=== PATIENT | female | born 1940 | race Caucasian/White ===

== ENCOUNTER 2022-07-14 10:32 | Inpatient (IN) | payer MEDICARE ==
[~2022-07-14] VITALS: Ht 160 cm; Wt 114.3 kg
[2022-07-14] MEDS ORDERED: ONDANSETRON HCL INJ 2MG/ML 2ML 2 MG/ML VIAL IV STA (10:49)
[2022-07-14 11:04] LABS: BASOPHILS # (AUTO) 0.1 (0.0-0.1); BASOPHILS % 0.7 % (0.0-1.0); EOSINOPHILS # (AUTO) 0.2 (0.0-0.4); EOSINOPHILS % 1.5 % (0.0-6.0); HEMATOCRIT 38.3 % (34.2-44.1); HEMOGLOBIN 12.6 g/dL (12.0-16.0); LYMPHOCYTES % 20.5 % (18.0-39.1); MEAN CORPUSCULAR HEMOGLOBIN 31.3 pg (28-32); MEAN CORPUSCULAR HGB CONC 32.9 g/dL (31-35); MONOCYTES # (AUTO) 0.5 (0.2-0.8); MONOCYTES % 5.1 % (4.4-11.3); NEUTROPHILS # (AUTO) 6.9 (2.1-6.9); NEUTROPHILS % 71.7 % (38.7-80.0); PLATELET COUNT 287 x10e3/uL (140-360); RED BLOOD COUNT 4.03 x10e6/uL (3.6-5.1); RED CELL DISTRIBUTION WIDTH 13.9 % (11.7-14.4)
[2022-07-14 11:07] LABS: INR 1.42; PROTHROMBIN TIME 18.5 seconds (11.9-14.5)
[2022-07-14 11:08] LABS: PARTIAL THROMBOPLASTIN TIME 35.9 seconds (23.8-35.5)
[2022-07-14 11:17] LABS: ALBUMIN 3.5 g/dL (3.5-5.0); ALBUMIN/GLOBULIN RATIO 0.8 (0.8-2.0); ANION GAP 20.7 mmol/L (8-16); CALCIUM 9.6 mg/dL (8.4-10.2); CREATININE, SERUM 0.85 mg/dL (0.57-1.11); MAGNESIUM 1.6 MG/DL (1.3-2.1); POTASSIUM 4.7 mmol/L (3.5-5.1)
[2022-07-14 11:19] LABS: CLARITY,URINE CLEAR (CLEAR); COLOR,URINE YELLOW (YELLOW); LEUKOCYTE ESTERASE ,URINE NEGATIVE (NEGATIVE)
[2022-07-14 11:20] LABS: KETONES,URINE NEGATIVE (NEGATIVE); NITRITE,URINE NEGATIVE (NEGATIVE); PROTEIN,URINE DIPSTICK >=300 (NEGATIVE); URINE UROBILINOGEN 0.2 mg/dL (0.2 - 1)
[2022-07-14 11:23] LABS: CREATINE KINASE MB 1.1 ng/mL (0-5.0)
[2022-07-14 11:30] LABS: BACTERIA,URINE FEW /HPF; EPITHELIAL CELLS,URINE FEW /LPF; RBC,URINE 0-5 /HPF (0-5); YEAST,URINE FEW
[2022-07-14] MEDS ORDERED: FUROSEMIDE INJ 10 MG/ML 4 ML VIAL IV ONE ×2 (12:30→13:45)
[2022-07-14] MEDS ORDERED: MEROPENEM 1 GM in SODIUM CHLORIDE 0.9% 100 ML IV SCH (12:30)
[2022-07-14] MEDS ORDERED: ONDANSETRON HCL INJ 2MG/ML 2ML 2 MG/ML VIAL IV PRN ×2 (12:30→13:00)
[2022-07-14] MEDS ORDERED: HYDRALAZINE HCL 20 MG/ML VIAL IV PRN (12:30)
[2022-07-14 15:21] VITALS: BP 161/93
[2022-07-14] MEDS: FUROSEMIDE INJ 10 MG/ML 4 ML VIAL IV SCH ×2 (15:36→21:44)
[2022-07-14] MEDS: FAMOTIDINE 20 MG/2 ML VIAL IV SCH (15:37)
[2022-07-14] MEDS: MEROPENEM 1 GM in SODIUM CHLORIDE 0.9% 100 ML IV SCH ×2 (15:37→23:34)
[2022-07-14] MEDS ORDERED: SODIUM CHLORIDE 0.9% 250ML 250 ML ONE (15:42)
[2022-07-14 15:49] VITALS: BP 146/80
[2022-07-14 17:06] VITALS: BP 146/80
[2022-07-14] MEDS ORDERED: DEXTROSE 50% SYRINGE 50 ML IV PRN (17:15)
[2022-07-14 18:03] LABS: CREATINE KINASE MB 0.9 ng/mL (0-5.0)
[2022-07-14] MEDS: APIXABAN 5 MG TABLET PO SCH (18:07)
[2022-07-14 20:00] VITALS: BP 113/79
[2022-07-14] MEDS: ATORVASTATIN 20 MG TAB PO SCH (21:44)
[2022-07-14] MEDS: INSULIN REGULAR, HUMAN 100 UNIT/1 ML SQ SCH (21:53)
[2022-07-14 22:59] VITALS: BP 113/79
[2022-07-15] VITALS (7 sets, daily range): BP systolic 111–150; BP diastolic 60–75
[2022-07-15] MEDS: FAMOTIDINE 20 MG/2 ML VIAL IV SCH ×2 (01:55→14:08)
[2022-07-15] MEDS: METOPROLOL TARTRATE 25 MG TAB PO SCH ×3 (05:19→08:58)
[2022-07-15] MEDS ORDERED: FUROSEMIDE20 MG PO (05:30)
[2022-07-15] MEDS ORDERED: CLONIDINE HCL0.2 MG PO (05:30)
[2022-07-15] MEDS ORDERED: ATORVASTATIN CA40 MG PO (05:30)
[2022-07-15] MEDS ORDERED: METFORMIN HCL500 M1 PO (05:30)
[2022-07-15] MEDS ORDERED: CARVEDILOL25 MG PO (05:30)
[2022-07-15 06:04] LABS: BASOPHILS # (AUTO) 0.1 (0.0-0.1); BASOPHILS % 0.8 % (0.0-1.0); EOSINOPHILS # (AUTO) 0.2 (0.0-0.4); EOSINOPHILS % 1.4 % (0.0-6.0); HEMATOCRIT 41.3 % (34.2-44.1); HEMOGLOBIN 13.1 g/dL (12.0-16.0); LYMPHOCYTES # (AUTO) 1.7 (1.0-3.2); LYMPHOCYTES % 16.2 % (18.0-39.1); MEAN CORPUSCULAR HEMOGLOBIN 31.7 pg (28-32); MEAN CORPUSCULAR HGB CONC 31.7 g/dL (31-35); MONOCYTES # (AUTO) 0.5 (0.2-0.8); NEUTROPHILS # (AUTO) 8.1 (2.1-6.9); NEUTROPHILS % 75.8 % (38.7-80.0); PLATELET COUNT 288 x10e3/uL (140-360); RED BLOOD COUNT 4.13 x10e6/uL (3.6-5.1); RED CELL DISTRIBUTION WIDTH 14.1 % (11.7-14.4)
[2022-07-15 06:28] LABS: ALBUMIN 3.4 g/dL (3.5-5.0); ALBUMIN/GLOBULIN RATIO 0.9 (0.8-2.0); ANION GAP 20.9 mmol/L (8-16); CALCIUM 9.2 mg/dL (8.4-10.2); CREATININE, SERUM 0.88 mg/dL (0.57-1.11); POTASSIUM 4.9 mmol/L (3.5-5.1)
[2022-07-15 07:08] LABS: CREATINE KINASE MB 1.1 ng/mL (0-5.0)
[2022-07-15] MEDS: INSULIN REGULAR, HUMAN 100 UNIT/1 ML SQ SCH ×4 (07:30→21:06)
[2022-07-15] MEDS: MEROPENEM 1 GM in SODIUM CHLORIDE 0.9% 100 ML IV SCH ×2 (08:57→16:00)
[2022-07-15] MEDS: APIXABAN 5 MG TABLET PO SCH ×2 (08:58→17:15)
[2022-07-15] MEDS: FUROSEMIDE INJ 10 MG/ML 4 ML VIAL IV SCH (08:58)
[2022-07-15] MEDS ORDERED: METOPROLOL TARTRATE 25 MG TAB PO SCH (09:00)
[2022-07-15] MEDS: FLUCONAZOLE 100 MG TAB PO SCH (11:18)
[2022-07-15] MEDS: METOPROLOL TARTRATE 50 MG TAB PO SCH ×2 (11:19→21:02)
[2022-07-15 11:57] LABS: ABG PH 7.26 (7.35-7.45)
[2022-07-15 11:58] LABS: ABG HCO3 36 mmol/L (22-26); ABG PCO2 81 mmHg (35-45); ABG PO2 83 mmHg (80-105); ABG TCO2 39
[2022-07-15] MEDS ORDERED: IOPAMIDOL 370 MG/ML 100 ML INFUS..BTL INJ ONE (13:42)
[2022-07-15] MEDS: ALBUTEROL/IPRATROPIUM 3 ML NEB NEB SCH ×3 (15:19→23:05)
[2022-07-15] MEDS ORDERED: LOSARTAN POTASSIUM 100 MG TAB PO SCH (17:00)
[2022-07-15] MEDS: FUROSEMIDE INJ 10 MG/ML 2 ML VIAL IV SCH (17:14)
[2022-07-15] MEDS ORDERED: LEVALBUTEROL HCL SOLN NEBU 0.63 MG/3 ML NEB INH PRN (18:15)
[2022-07-15 18:48] LABS: FREE THYROXINE INDEX 2.2205 (1.4-3.8); THYROID STIMULATING HORMONE 1.808 uIU/mL (0.350-4.940)
[2022-07-15] MEDS: ATORVASTATIN 20 MG TAB PO SCH (21:01)
[2022-07-16] VITALS (8 sets, daily range): BP systolic 120–143; BP diastolic 68–99
[2022-07-16] MEDS: MEROPENEM 1 GM in SODIUM CHLORIDE 0.9% 100 ML IV SCH ×2 (00:11→10:09)
[2022-07-16] MEDS: FAMOTIDINE 20 MG/2 ML VIAL IV SCH ×2 (00:11→13:00)
[2022-07-16] MEDS: ALBUTEROL/IPRATROPIUM 3 ML NEB NEB SCH ×6 (06:00→23:08)
[2022-07-16 06:44] LABS: BASOPHILS # (AUTO) 0.1 (0.0-0.1); BASOPHILS % 0.5 % (0.0-1.0); EOSINOPHILS # (AUTO) 0.3 (0.0-0.4); EOSINOPHILS % 2.7 % (0.0-6.0); HEMATOCRIT 35.6 % (34.2-44.1); HEMOGLOBIN 11.4 g/dL (12.0-16.0); LYMPHOCYTES # (AUTO) 2.1 (1.0-3.2); LYMPHOCYTES % 20.5 % (18.0-39.1); MEAN CORPUSCULAR HEMOGLOBIN 31.7 pg (28-32); MEAN CORPUSCULAR VOLUME 98.9 fL (81-99); MONOCYTES # (AUTO) 0.8 (0.2-0.8); MONOCYTES % 7.3 % (4.4-11.3); NEUTROPHILS # (AUTO) 7.1 (2.1-6.9); NEUTROPHILS % 68.5 % (38.7-80.0); PLATELET COUNT 290 x10e3/uL (140-360); RED CELL DISTRIBUTION WIDTH 13.9 % (11.7-14.4)
[2022-07-16 07:09] LABS: ALBUMIN 3.1 g/dL (3.5-5.0); ALBUMIN/GLOBULIN RATIO 0.9 (0.8-2.0); ANION GAP 13.1 mmol/L (8-16); CREATININE, SERUM 0.91 mg/dL (0.57-1.11); POTASSIUM 4.1 mmol/L (3.5-5.1)
[2022-07-16 07:14] LABS: THYROID STIMULATING HORMONE 0.718 uIU/mL (0.350-4.940)
[2022-07-16] MEDS: INSULIN REGULAR, HUMAN 100 UNIT/1 ML SQ SCH ×4 (07:30→20:14)
[2022-07-16] MEDS: FLUCONAZOLE 100 MG TAB PO SCH (10:07)
[2022-07-16] MEDS: APIXABAN 5 MG TABLET PO SCH ×2 (10:08→17:56)
[2022-07-16] MEDS: METOPROLOL TARTRATE 50 MG TAB PO SCH ×2 (10:08→20:04)
[2022-07-16] MEDS: FUROSEMIDE INJ 10 MG/ML 2 ML VIAL IV SCH ×2 (10:09→17:56)
[2022-07-16 12:24] LABS: ABG HCO3 38 mmol/L (22-26); ABG PCO2 57 mmHg (35-45); ABG PH 7.43 (7.35-7.45); ABG PO2 74 mmHg (80-105); ABG TCO2 40
[2022-07-16] MEDS: CIPROFLOXACIN 500 MG TAB PO SCH (17:56)
[2022-07-16] MEDS: ATORVASTATIN 20 MG TAB PO SCH (20:03)
[2022-07-16] MEDS: ACETAMINOPHEN 325 MG TAB PO PRN (22:22)
[2022-07-17] VITALS (7 sets, daily range): BP systolic 115–138; BP diastolic 71–88
[2022-07-17] MEDS: FAMOTIDINE 20 MG/2 ML VIAL IV SCH ×2 (01:28→12:03)
[2022-07-17 05:47] LABS: BASOPHILS % 0.3 % (0.0-1.0); EOSINOPHILS # (AUTO) 0.4 (0.0-0.4); EOSINOPHILS % 3.4 % (0.0-6.0); HEMATOCRIT 35.6 % (34.2-44.1); HEMOGLOBIN 11.7 g/dL (12.0-16.0); LYMPHOCYTES # (AUTO) 2.5 (1.0-3.2); LYMPHOCYTES % 20.8 % (18.0-39.1); MEAN CORPUSCULAR HEMOGLOBIN 31.5 pg (28-32); MEAN CORPUSCULAR HGB CONC 32.9 g/dL (31-35); MONOCYTES % 8.1 % (4.4-11.3); NEUTROPHILS # (AUTO) 8.1 (2.1-6.9); NEUTROPHILS % 67.1 % (38.7-80.0); PLATELET COUNT 310 x10e3/uL (140-360); RED BLOOD COUNT 3.71 x10e6/uL (3.6-5.1); RED CELL DISTRIBUTION WIDTH 13.8 % (11.7-14.4)
[2022-07-17 06:18] LABS: ALBUMIN 3.1 g/dL (3.5-5.0); ALBUMIN/GLOBULIN RATIO 0.9 (0.8-2.0); ANION GAP 14.7 mmol/L (8-16); CALCIUM 9.1 mg/dL (8.4-10.2); CREATININE, SERUM 0.8 mg/dL (0.57-1.11); POTASSIUM 3.7 mmol/L (3.5-5.1)
[2022-07-17] MEDS: ALBUTEROL/IPRATROPIUM 3 ML NEB NEB SCH ×4 (06:20→19:35)
[2022-07-17] MEDS: INSULIN REGULAR, HUMAN 100 UNIT/1 ML SQ SCH ×4 (07:30→20:21)
[2022-07-17] MEDS ORDERED: LOSARTAN POTASSIUM 100 MG TAB PO SCH (09:00)
[2022-07-17] MEDS: FLUCONAZOLE 100 MG TAB PO SCH (09:12)
[2022-07-17] MEDS: FUROSEMIDE INJ 10 MG/ML 2 ML VIAL IV SCH ×2 (09:12→17:00)
[2022-07-17] MEDS: CIPROFLOXACIN 500 MG TAB PO SCH ×2 (09:14→20:21)
[2022-07-17] MEDS: APIXABAN 5 MG TABLET PO SCH ×2 (09:15→20:21)
[2022-07-17] MEDS: METOPROLOL TARTRATE 50 MG TAB PO SCH ×2 (09:16→20:24)
[2022-07-17] MEDS: LOSARTAN POTASSIUM 100 MG TAB PO SCH (09:30)
[2022-07-17] MEDS: ACETAMINOPHEN 325 MG TAB PO PRN ×2 (10:48→20:22)
[2022-07-17] MEDS: ATORVASTATIN 20 MG TAB PO SCH (20:21)
[2022-07-17] MEDS ORDERED: FUROSEMIDE INJ 10 MG/ML 4 ML VIAL ONE (21:09)
[2022-07-17] MEDS ORDERED: FUROSEMIDE INJ 10 MG/ML 2 ML VIAL IV ONE (21:30)
[2022-07-18] VITALS (8 sets, daily range): BP systolic 116–149; BP diastolic 64–86
[2022-07-18] MEDS: FAMOTIDINE 20 MG/2 ML VIAL IV SCH ×2 (01:06→17:40)
[2022-07-18 05:59] LABS: BASOPHILS # (AUTO) 0.1 (0.0-0.1); BASOPHILS % 0.6 % (0.0-1.0); EOSINOPHILS # (AUTO) 0.6 (0.0-0.4); EOSINOPHILS % 5.7 % (0.0-6.0); HEMATOCRIT 39.1 % (34.2-44.1); HEMOGLOBIN 12.2 g/dL (12.0-16.0); LYMPHOCYTES # (AUTO) 2.1 (1.0-3.2); LYMPHOCYTES % 19.9 % (18.0-39.1); MEAN CORPUSCULAR HEMOGLOBIN 31.3 pg (28-32); MEAN CORPUSCULAR HGB CONC 31.2 g/dL (31-35); MEAN CORPUSCULAR VOLUME 100.3 fL (81-99); MONOCYTES # (AUTO) 0.9 (0.2-0.8); MONOCYTES % 8.4 % (4.4-11.3); NEUTROPHILS % 65.1 % (38.7-80.0); PLATELET COUNT 329 x10e3/uL (140-360); RED CELL DISTRIBUTION WIDTH 13.7 % (11.7-14.4)
[2022-07-18] MEDS: ALBUTEROL/IPRATROPIUM 3 ML NEB NEB SCH ×5 (06:00→23:05)
[2022-07-18 06:23] LABS: ANION GAP 13.8 mmol/L (8-16); CALCIUM 9.3 mg/dL (8.4-10.2); CREATININE, SERUM 0.78 mg/dL (0.57-1.11); POTASSIUM 3.8 mmol/L (3.5-5.1)
[2022-07-18] MEDS: INSULIN REGULAR, HUMAN 100 UNIT/1 ML SQ SCH ×4 (07:30→21:00)
[2022-07-18] MEDS ORDERED: ONDANSETRON HCL 4 MG ORAL DISINTEGRATING TAB PO PRN (11:15)
[2022-07-18] MEDS: FLUCONAZOLE 100 MG TAB PO SCH (11:19)
[2022-07-18] MEDS: ACETAMINOPHEN 325 MG TAB PO PRN ×2 (11:19→22:04)
[2022-07-18] MEDS: LOSARTAN POTASSIUM 100 MG TAB PO SCH (11:20)
[2022-07-18] MEDS: CIPROFLOXACIN 500 MG TAB PO SCH ×2 (11:21→17:27)
[2022-07-18] MEDS: METOPROLOL TARTRATE 50 MG TAB PO SCH ×2 (11:21→21:58)
[2022-07-18] MEDS: APIXABAN 5 MG TABLET PO SCH ×2 (11:21→17:27)
[2022-07-18] MEDS: FUROSEMIDE INJ 10 MG/ML 4 ML VIAL IV SCH (12:35)
[2022-07-18] MEDS: ATORVASTATIN 20 MG TAB PO SCH (21:55)
[2022-07-19] VITALS: BP 137/92
[2022-07-19] MEDS: FAMOTIDINE 20 MG/2 ML VIAL IV SCH (01:00)
[2022-07-19] MEDS ORDERED: FAMOTIDINE 20 MG TAB PO SCH ×2 (01:30→13:30)
[2022-07-19 04:00] VITALS: BP 121/54
[2022-07-19] MEDS: ALBUTEROL/IPRATROPIUM 3 ML NEB NEB SCH ×3 (06:50→14:50)
[2022-07-19 08:29] VITALS: BP 133/89
[2022-07-19] MEDS: FUROSEMIDE INJ 10 MG/ML 4 ML VIAL IV SCH (09:33)
[2022-07-19] MEDS: CIPROFLOXACIN 500 MG TAB PO SCH ×2 (09:33→17:50)
[2022-07-19] MEDS: FLUCONAZOLE 100 MG TAB PO SCH (09:34)
[2022-07-19] MEDS: LOSARTAN POTASSIUM 100 MG TAB PO SCH (09:34)
[2022-07-19] MEDS: APIXABAN 5 MG TABLET PO SCH ×2 (09:34→17:50)
[2022-07-19] MEDS: METOPROLOL TARTRATE 50 MG TAB PO SCH (09:34)
[2022-07-19 09:39] VITALS: BP 133/89
[2022-07-19] MEDS: INSULIN REGULAR, HUMAN 100 UNIT/1 ML SQ SCH ×3 (09:53→16:30)
[2022-07-19 11:23] VITALS: BP 115/71
[2022-07-19] MEDS ORDERED: ELIQUIS5 MG PO (12:07)
[2022-07-19] MEDS ORDERED: CIPROFLOXACIN500 MG PO (12:07)
[2022-07-19] MEDS ORDERED: PROAIR HFA INH8.5 GM IH (12:07)
[2022-07-20] MEDS ORDERED: FUROSEMIDE 40 MG TAB PO SCH (09:00)
== END 2022-07-19 18:25 | disposition home or self-care (01) | DRG 291 ==
LOC: ER 10:35 → ERHOLD 12:59 → MED/SURG2 14:10
PROVIDERS: ADMIT Internal Medicine; ATTEND Internal Medicine
DX: I11.0 Hypertensive heart disease with heart failure (principal); I50.31 Acute diastolic (congestive) heart failure; J96.01 Acute respiratory failure with hypoxia; B37.49 Other urogenital candidiasis; Z16.12 Extended spectrum beta lactamase (ESBL) resistance; Z68.42 Body mass index [BMI] 45.0-49.9, adult; I48.21 Permanent atrial fibrillation; I48.91 Unspecified atrial fibrillation; B96.89 Other specified bacterial agents as the cause of diseases classified elsewhere; E66.01 Morbid (severe) obesity due to excess calories; E78.00 Pure hypercholesterolemia, unspecified; M06.9 Rheumatoid arthritis, unspecified; Z99.3 Dependence on wheelchair; G47.33 Obstructive sleep apnea (adult) (pediatric); E11.69 Type 2 diabetes mellitus with other specified complication; E78.5 Hyperlipidemia, unspecified; Z85.3 Personal history of malignant neoplasm of breast; Z20.822 Contact with and (suspected) exposure to COVID-19; I89.0 Lymphedema, not elsewhere classified; I25.10 Atherosclerotic heart disease of native coronary artery without angina pectoris; Z74.01 Bed confinement status; T36.1X5A Adverse effect of cephalosporins and other beta-lactam antibiotics, initial encounter; R41.82 Altered mental status, unspecified; Z79.899 Other long term (current) drug therapy; M19.90 Unspecified osteoarthritis, unspecified site; Z90.12 Acquired absence of left breast and nipple; Z79.01 Long term (current) use of anticoagulants
CPT/HCPCS: 36415; 36600; 51700; 70450; 71045; 71260; 80048; 80053; 80061; 81001; 82550; 82553; 82607; 82805; 82948; 83605; 83735; 83880; 84436; 84443; 84479; 84484; 85025; 85379; 85610; 85730; 87040; 87086; 87186; 87400; 93005; 93306; 94640; 94660; 94760; 94799; 96360; 99251; 99285; J1817; J1940; J2185; J2405; J7050; Q9967